=== PATIENT | male | born 1995 | race Caucasian/White ===

== ENCOUNTER 2023-04-21 09:34 | Emergency (ER) | payer OTHER, SELFPAY ==
[2023-04-21 09:40] VITALS: BP 143/99; PULSE 98; RESP 16; TEMP 36.7; O2SAT 100; BMI 19.4
--- NOTE | 2023-04-21 09:50 | CT_ITS ---
The [address] [address] Patient Name: TAMERA CARRILLO MRN: [id number] date: 1995 Sex: M Assigned Patient Location: ER Current Patient Location: ER Accession/Order Number: [id number] Exam Date: 04/21/2023 09:50 Report Date: 04/21/2023 10:10 At the request of: JOHN NAVARRETE Procedure: CT head/brain wo con EXAM: CT head/brain wo con HISTORY: Head injury COMPARISON: None. FINDINGS: No acute intracranial hemorrhage. No acute loss of meléndez/white differentiation. The ventricles and sulci are normal in appearance. The osseous structures are unremarkable. No soft tissue abnormality identified. The paranasal sinuses and mastoid air cells are clear. CT/CT head/brain wo con IMPRESSION: 1. No acute intracranial abnormality. Electronically authenticated by: CARISA VALENTIN Date: 04/21/2023 10:10
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
[2023-04-21 10:37] VITALS: BP 127/91; PULSE 88; RESP 14; O2SAT 96
== END 2023-04-21 10:39 | disposition home or self-care (01) ==
PROVIDERS: Emergency Provider Emergency Medicine; PCP Family Medicine
DX: T14.8XXA Other injury of unspecified body region, initial encounter (principal); W22.8XXA Striking against or struck by other objects, initial encounter
CPT/HCPCS: 70450; 99284

== ENCOUNTER 2023-11-07 13:12 | Emergency (ER) | payer OTHER, SELFPAY ==
[2023-11-07 13:15] VITALS: BP 103/57; PULSE 64; TEMP 36.5; BMI 19.4
--- NOTE | 2023-11-07 13:25 | ED_ITS ---
HPI - Wound/Laceration General Chief Complaint: Wound/Laceration Stated Complaint: LACERATION Time Seen by Provider: 11/07/23 13:12 Source: patient Mode of arrival: walk-in Limitations: no limitations History of Present Illness HPI narrative: 27-year-old male [id number] was working on his car when he struck his hand on his rearview mirror. Patient has a 1 cm laceration dorsal aspect of the hand at the base of the ring finger overlying the fourth MCP joint. Just lateral to the extensor tendon. Patient has localized pain, range of motion intact, denies any numbness or tingling. Notes pain with motion. Small abrasion at the base of the middle finger. Patient states the laceration was caused by broken glass. His tetanus is up-to-date and he typically works in a metal shop. Extremity Location: Right: hand Place: Reports home Patient tetanus UTD: Yes Associated symptoms: Reports none Treatments prior to arrival: Reports cold therapy Related Data Home Medications ?Medication ?Instructions ?Recorded ?Confirmed No Known Home Medications 04/21/23 04/21/23 Allergies Allergy/AdvReac Type Severity Reaction Status Date / Time No Known Drug Allergies Allergy Verified 04/21/23 09:39 Review of Systems ROS Constitutional Denies: fever, chills or change in weight Eyes Denies: change in vision, blurry vision or increased production of tears Ears, nose, mouth, and throat Denies: throat pain or neck pain Cardiovascular Denies: chest pain or palpitations Respiratory Denies: shortness of breath or cough Gastrointestinal Denies: abdominal pain or nausea Musculoskeletal Denies: back pain or neck pain Integumentary/Breast Denies: rash Neurological Denies: headache Psychiatric Denies: anxiety [facility] Social History Smoking status: Never smoker Exam Narrative Exam Narrative: Nurse's notes and vital signs reviewed. Patient is not hypoxic. General: The patient appears well and in no apparent distress. Patient is resting comfortably on cart. Skin: Warm, dry, no pallor noted. 1 cm laceration superficial dorsal aspect fourth ray just proximal to the MCP joint. No active bleeding. Extensor tendon function intact Head: Normocephalic, atraumatic Eye: Normal conjunctiva Respiratory: Patient is in no distress Musculoskeletal: The Right hand wrist shows no obvious deformity. laceration as noted above, small abrasion base of middle finger. There was no swelling noted. The patient had full ROM despite pain The patient had tenderness noted to laceration. The patient had no tenderness in the anatomical snuff box. The patient had no pain with axial loading of the thumb. Pulses are intact at brachial and radial 2+. There was no deficit at the elbow or shoulder. The patient has normal capillary refill to all distal digits. The patient has no evidence of cyanosis or mottling. The patient is able to flex and extend all digits without difficulty. Neurological: A&O x4, normal sensory, normal motor Psychiatric: Cooperative Constitutional Vital Signs, click to edit/add: Last Vital Signs Temp 97.7 F 11/07/23 13:15 Pulse 64 11/07/23 13:15 Resp 16 11/07/23 13:15 BP 103/57 11/07/23 13:15 Course Vital Signs Vital signs: Vital Signs Temperature 97.7 F 11/07/23 13:15 Pulse Rate 64 11/07/23 13:15 Respiratory Rate 16 11/07/23 13:15 Blood Pressure 103/57 11/07/23 13:15 Temperature 97.7 F 11/07/23 13:15 Pulse Rate 64 11/07/23 13:15 Respiratory Rate 16 11/07/23 13:15 Blood Pressure 103/57 11/07/23 13:15 MDM - Wound/Laceration MDM Narrative Medical decision making narrative: Patient doing well, tetanus up-to-date. Bleeding controlled with direct pressure. No evidence of arterial bleeding. Discussed mechanism of injury, patient states he did not strike the mirror with any force and did not even realize he cut his hand until he looked at it. We mutually discussed the utili ty of x-ray, patient declines the need not concerned for fracture. Foreign body seems less likely given exploration of the wound during repair easily visible superficial and without laceration. patient denies pain, may take Tylenol as needed we discussed wound care and need for suture removal in 10 days. The patient is to followup with primary care physician in next 10 days or to return to the emergency department should any of the signs or symptoms worsen or new symptoms develop. Patient had questions answered. The patient agrees with the following Diagnosis and Treatment plan and the patient will be discharged home. Discharge Plan Discharge Stand Alone Forms: Work/School Release, Portal Instructions Chief Complaint: Wound/Laceration Clinical Impression: Laceration of hand, right Patient Disposition: Home, Self-Care Time of Disposition Decision: 13:49 Condition: Good Mode of Transportation: Private Vehicle Prescriptions / Home Meds: No Action No Known Home Medications Print Language: Bhutanese Instructions: Laceration (ED) Additional Instructions: Suture removal in [address] Crook's office or return to ER. May shower, Keep clean and dry after. No submerging wound. Referrals: JAYLA CROOK [Primary Care Provider] - 11/17/23 Procedures ED Laceration Laceration Laceration 1: Additional comments: Laceration repair: Done under sterile conditions. The use of Betadine was used to prep and clean the area. Local injection with lidocaine 1% was used, approximately 2 cc. The wound was irrigated copiously with normal saline. The wound was explored there was no evidence of foreign material. Laceration was superficial with no capsule or tendon involvement. Fascia covering extensor and capsule intact. The laceration was approximated with 5-0 nylon. 3 simple interrupted sutures were placed. Patient tolerated the procedure well. The patient was neurovascularly intact post. the patient had bacitracin applied to the laceration and a dry sterile dressing was place. The patient will need to follow-up in the next 0 days for removal.
--- OUTSIDE RECORDS SUMMARY | 2023-11-07 13:29 | XMS_ITS | CCD ---
Author Organization [facility] Inform ion Partnership [facility] Care Team Providers Care Laboratory Aide Name Role Phone Raul Yee Primary Care Provider [phone] MINESH STERN Attending Unavailab RAUL Posey Primary Care Unavailable ISABELA NORIEGA Attending Unavailable ISABELA NORIEGA Admitting Unavailable ISABELA NORIEGA Attending Unavailable ISABELA NORIEGA Admitting Unavailable ISABELA NORIEGA Consulting Unavailable Ellen Jaquez Unavailable Medications Current Medications Medication Drug Class(es) Dates Sig (Normalized) Sig (Original) amoxicillin 500 mg oral capsule (1 source) Penicillin-class Antibacterial Start: 04-19-2022 take 1 capsule by mouth every twelve hours Amoxicillin 500 MG 1 capsule Orally Twice a day for 10 days Apr, Active Problems Problem Classification Problem Date Documented Da te Episodic/Chronic Other ear and sense organ disorders (1 source) Unspecified otitis externa, left ear; Translations: [UNS OTITIS EXTERNA LEFT EAR] Onset: 04-06-2020 Chronic Other skin disorders (4 sources) Generalized hyperhidrosis; Translations: [GENERALIZED HYPERHIDROSIS] Onset: 04-01-2020 Episodic Other upper respiratory infections (2 sources) Acute pharyngitis, unspecified; Translations: [Streptococcal pharyngitis] Episodic Viral infection (2 sources) Viral disease; Translations: [Viral infection] Onset: 01-06-2020 01-06-2020 Episodic Results Test Name Value Interpretation Reference Range Facil ity Quick Strepon 04-19-2022 S. pyogenes Org specific cx Ql (Throat) Negative [facility] Other Quick Strep [facility] Other CBC AUTO DIFFon 04-01-2020 Basophils (Bld) [#/Vol] 0.1 103/ul Normal 0.0-0.1 [facility] Comment on above: Performed By: #### C BC #### [facility] [address], [place] [address] Joseph Marry Basophils/100 WBC (Bld) 1.0 % Normal 0.2-2.0 [facility] Comment on above: Performed By: #### C BC #### [facility] [address], [place] [address] Joseph Marry Eosinophils (Bld) [#/Vol] 0.2 103/ul Normal 0.0-0.7 [facility] Comment on above: Performed By: #### C BC #### [facility] [address], [place] [address] Joseph Marry Eosinophils/100 WBC (Bld) 1.8 % Normal 0.9-7.0 [facility] Comment on above: Performed By: #### C BC #### [facility] [address], [place] [address] Joseph Marry Erythrocyte distribution width (RBC) [Ratio] 12.2 % Normal 11.0-15.0 [facility] Comment on above: Performed By: #### C BC #### [facility] [address], [place] [address] Joseph Marry Hematocrit (Bld) [Volume fraction] 53.6 % Normal 42.0-54.0 [facility] Comment on above: Performed By: #### C BC #### [facility] [address], [place] [address] Joseph Marry Hemoglobin (Bld) [Mass/Vol] 18.7 g/dL Critically high 14.0-18.0 [facility] Comment on above: Performed By: #### C BC #### [facility] [address], [place] [address] Joseph Marry IG # 0.07 10e3/ul Critically high 0.00-0.03 [facility] Comment on above: Performed By: #### C BC #### [facility] [address], [place] [address] Joseph Marry IG % 0.7 % Critically high 0.0-0.5 [facility] Comment on above: Performed By: #### C BC #### [facility] [address], [place] [address] Joseph Marry Lymphocytes (Bld) [#/Vol] 2.3 103/ul Normal 1.2-3.8 [facility] Comment on above: Performed By: #### C BC #### [facility] [address], [place] [address] Joseph Marry Lymphocytes/100 WBC (Bld) 23.0 % Normal 20.5-60.0 [facility] Comment on above: Performed By: #### C BC #### [facility] [address], [place] [address] Joseph Marry MANUAL DIFF REQ NO Normal [facility] Comment on above: Performed By: #### C BC #### [facility] [address] [place] [address] Joseph Marry MCH (RBC) [Entitic mass] 31.4 pg Normal 25.9-34.0 [facility] Comment on above: Performed By: #### C BC #### [facility] [address] [place] [address] Joseph Marry MCHC (RBC) [Mass/Vol] 34.9 g/dL Normal 29.9-35.2 [facility] Comment on above: Performed By: #### C BC #### [facility] [address] [place] [address] Joseph Marry MCV (RBC) [Entitic vol] 89.9 fL Normal 80.0-94.0 [facility] Comment on above: Performed By: #### C BC #### [facility] [address] [place] [address] Joseph Marry Monocytes (Bld) [#/Vol] 0.9 103/ul Critically high 0.3-0.8 [facility] Comment on above: Performed By: #### C BC #### [facility] [address], [place] [address] Joseph Marry Monocytes/100 WBC (Bld) 8.5 % Normal 1.7-12.0 [facility] Comment on above: Performed By: #### C BC #### [facility] [address], [place] [address] Joseph Marry Neutrophils (Bld) [#/Vol] 6.6 103/ul Critically high 1.4-6.5 [facility] Comment on above: Performed By: #### C BC #### [facility] [address], [place] [address] Joseph Marry Neutrophils/100 WBC (Bld) 65.0 % Normal 43.0-75.0 [facility] Comment on above: Performed By: #### C BC #### [facility] [address], [place] [address] Joseph Marry Platelet mean volume (Bld) [Entitic vol] 11.1 fL Normal 9.5-13.5 [facility] Comment on above: Performed By: #### C BC #### [facility] [address], [place] [address] Joseph Marry Platelets (Bld) [#/Vol] 212 103/ul Normal 150-450 [facility] Comment on above: Performed By: #### C BC #### [facility] [address], [place] [address] Joseph Marry RBC (Bld) [#/Vol] 5.96 106/ul Normal 4.70-6.10 [facility] Comment on above: Performed By: #### C BC #### [facility] [address], [place] [address] Joseph Marry WBC (Bld) [#/Vol] 10.1 103/ul Normal 4.0-11.0 [facility] Comment on above: Performed By: #### C BC #### [facility] [address], [place] [address] Joseph Marry FREE THYROXINE INDEX T7on FTI 2.86 Normal [facility] Comment on above: Performed By: #### T SH, CMP, T7 #### [facility] [address], [place] [address] Joseph Marry T3U 34.0 % Normal 23.5-40.5 [facility] Comment on above: Performed By: #### T AVINASH CMP, T7 #### [facility] [address] [place] [id number] Joseph Marry T4 [Mass/Vol] 8.40 ug/dL Normal 5.53-11.00 [facility] Comment on above: Performed By: #### T AVINASH CMP, T7 #### [facility] [address] [place], [place] [address] Joseph Tuttle PROF 14(COMP METB)on 021 Albumin [Mass/Vol] 4.8 g/dL Normal 3.5-5.0 [facility] Comment on above: Performed By: #### T AVINASH CMP, T7 #### [facility] [address] [place] [address] Josephzhanna Tuttle Albumin/Globulin [Mass ratio] 1.5 {ratio} Normal [facility] Comment on above: Performed By: #### T AVINASH CMP, T7 #### [facility] [address] [place] [address] Joseph Marry ALP [Catalytic activity/Vol] 73 U/L Normal 38-126 [facility] Comment on above: Performed By: #### T AVINASH CMP, T7 #### [facility] [address] [place] [address] Joseph Marry ALT [Catalytic activity/Vol] 24 U/L Normal 21-72 [facility] Comment on above: Performed By: #### T AVINASH CMP, T7 #### [facility] [address] [place], [place] [address] Joseph Marry Anion gap [Moles/Vol] 14.4 mmol/L Normal [facility] Comment on above: Performed By: #### T AVINASH CMP, T7 #### [facility] [address] [place] [address] Joseph Marry AST [Catalytic activity/Vol] 29 U/L Normal 17-59 [facility] Comment on above: Performed By: #### T AVINASH CMP, T7 #### [facility] [address] [place], [place] [address] Joseph Marry Bilirubin Ql (U) 1.5 mg/dL Critically high 0.2-1.3 [facility] Comment on above: Performed By: #### T MONO DA SILVA, T7 #### [facility] [address] [place] [address] Joseph Marry Calcium [Mass/Vol] 9.7 mg/dL Normal 8.4-10.2 [facility] Comment on above: Performed By: #### T AVINASH CMP, T7 #### [facility] [address] [place] [address] Joseph Marry Chloride [Moles/Vol] 100 mmol/L Normal 98-107 [facility] Comment on above: Performed By: #### T MONO DA SILVA, T7 #### [facility] [address] [place] [address] Joseph Marry CO2 [Moles/Vol] 29.5 mmol/L Normal 22.0-30.0 [facility] Comment on above: Performed By: #### T AVINASH CMP, T7 #### [facility] [address] [place] [address] Joseph Marry Creatinine [Mass/Vol] 0.99 mg/dL Normal 0.66-1.25 [facility] Comment on above: Performed By: #### T MONO DA SILVA, T7 #### [facility] [address] [place] [address] Joseph Marry EGFR-AF ANDORRAN >60 Normal >=60 [facility] Comment on above: Performed By: #### T AVINASH CMP, T7 #### [facility] [address] [place] [address] Joseph Marry EGFR-NON AF ANDORRAN >60 Normal >=60 [facility] Comment on above: Performed By: #### T AVINASH CMP, T7 #### [facility] [address] [place] [address] Joseph Marry Globulin (S) [Mass/Vol] 3.3 g/dL Normal [facility] Comment on above: Performed By: #### T AVINASH CMP, T7 #### [facility] [address] [place], [place] [address] Joseph Marry Glucose [Mass/Vol] 86 mg/dL Normal 74-106 [facility] Comment on above: Performed By: #### T MONO DA SILVA, T7 #### [facility] [address] [place], [place] [address] Joseph Marry Potassium [Moles/Vol] 3.9 mmol/L Normal 3.4-5.0 [facility] Comment on above: Performed By: #### T AVINASH CMP, T7 #### [facility] [address] [place], [place] [address] Joseph Marry Protein [Mass/Vol] 8.1 g/dL Normal 6.1-8.2 [facility] Comment on above: Performed By: #### T MONO DA SILVA, T7 #### [facility] [address] [place], [place] [address] Joseph Marry Sodium [Moles/Vol] 140 mmol/L Normal 137-145 [facility] Comment on above: Performed By: #### T AVINASH CMP, T7 #### [facility] [address] [place] [address] Joseph Marry Urea nitrogen [Mass/Vol] 16.0 mg/dL Normal 9.0-20.0 [facility] Comment on above: Performed By: #### T MONO DA SILVA, T7 #### [facility] [address] [place], [place] [address] Joseph Marry Urea nitrogen/Creatinin e [Mass ratio] 16.2 mg/mg Normal [facility] Comment on above: Performed By: #### T AVINASH CMP, T7 #### [facility] [address] [place], [place] [address] Joseph Marry TSHon 04-01-2020 TSH Qn SEE BELOW Normal [facility] Comment on above: Result Comment: <0.3 4 UIU/ml HYPERTHYROID 0.34-5.60 UIU/ml EUTHYROID >5.60 UIU/ml HYPOTHYROID Performed By: #### T AVINASH CMP, T7 #### [facility] [address] [place] [address] Joseph Marry TSH Qn 0.770 uIU/mL Normal 0.470-4.680 [facility] Comment on above: Performed By: #### T , [facility], T7 #### [facility] [address], [place] [address] Joseph Tuttle COVID-19on 01-06-2020 SARS-CoV-2, Rapid Not Detected Not Detected [place], [place] Comment on above: Rapid NAAT: The specimen is NEGATIVE for SARS-CoV-2, the novel coronavirus associated with COVID-19. The ID NOW COVID-19 assay is designed to detect the virus that causes COVID-19 in patients with signs and symptoms of infection who are suspected of COVID-19. An individual without symptoms of COVID-19 and who is not shedding SARS-CoV-2 virus would expect to have a negative (not detected) result in this assay. Negative results should be treated as presumptive and, if inconsistent with clinical signs and symptoms or necessary for patient management, should be tested with an alternative molecular assay. Negative results do not preclude SARS-CoV-2 infection and should not be used as the sole basis for patient management decisions. Fact sheet for Healthcare Providers: https://www.fda.gov/media/048909/download Fact sheet for Patients: https://www.fda.gov/media/010078/download Methodology: Isothermal Nucleic Acid Amplification Source .NASOPHARYNGEAL SWAB [place] Otheron 01-06-2020 SARS-CoV-2 [place] [id number] 01-06-2020 SARS-CoV-2 [facility] Comment on above: Performed By: #### C OVID #### [facility] [address] [place] [address] Log Roller: Wayne [place] MD SARS-CoV-2 [facility] Comment on above: Performed By: #### C OVID #### [facility] [address] [place] [address] Log Roller: Wayne [place] MD SARS-CoV-2,Rapid Not Detected Normal NOTDET [facility] Comment on above: Result Comment: Rapid NAAT: The specimen is NEGATIVE for SARS-CoV-2, the novel coronavirus associated with COVID-19. The ID NOW COVID-19 assay is designed to detect the virus that causes COVID-19 in patients with signs and symptoms of infection who are suspected of COVID-19. An individual without symptoms of COVID-19 and who is not shedding SARS-CoV-2 virus would expect to have a negative (not detected) result in this assay. Negative results should be treated as presumptive and, if inconsistent with clinical signs and symptoms or necessary for patient management, should be tested with an alternative molecular assay. Negative results do not preclude SARS-CoV-2 infection and should not be used as the sole basis for patient management decisions. Fact sheet for Healthcare Providers: https://www.fda.gov/media/979824/download Fact sheet for Patients: https://www.fda.gov/media/766158/download Methodology: Isothermal Nucleic Acid Amplification Performed By: #### C OVID #### [address] [place] [address] Log Roller: Wayne [place] MD SARS-CoV-2 Source .NASOPHARYNGEAL SWAB Normal [facility] Comment on above: Performed By: #### C OVID #### [facility] [address] [place] [address] Log Roller: Wayne [place] MD Vital Signs Date Time Vital Sign Value Performing Clinician Facility 04-19-2022 18:10-0500 Body height 165.1 cm Ellen Jaquez Other [employer] [facility] [employer] Other 04-19-2022 18:10-0500 Body mass index (BMI) [Ratio] 19.97 kg/m2 Ellen Jaquez Other [employer] [facility] [employer] Other 04-19-2022 18:10-0500 Body temperature 97.5 [degF] Ellen Jaquez Other [facility] Other 04-19-2022 18:10-0500 Body weight 54.43 kg Ellen Jaquez Other [facility] Other 04-19-2022 18:10-0500 Respiratory rate 18 /min Ellen Jaquez Other [facility] Other 04-19-2022 18:10-0500 SaO2% (BldA) [Mass fraction] 99 % Ellen Jaquez Other [facility] Other 01-06-2020 08:56-0400 BMI (Body Mass Index) 18.56 kg/m2 [facility] [place] 01-06-2020 08:56-0400 Body Temperature 98.01 [degF] [facility]ines[facility] Jonespatrick [employer] [facility] [place] 01-06-2020 08:56-0400 Body weight 52.16 kg Minesh [employer] [facility], [place] 01-06-2020 08:56-0400 BP Diastolic 77 mm[Hg] Minesh [employer] [facility], [place] 01-06-2020 08:56-0400 BP Systolic 137 mm[Hg] Minesh [employer] [facility] 01-06-2020 08:56-0400 Height 167.6 cm Minesh [employer] [facility], [place] 01-06-2020 08:56-0400 Pulse (Heart Rate) 88 /min Minesh Vogel [facility], [place] 01-06-2020 08:56-0400 Pulse Oximetry 99 % Minesh [employer] [facility], [place] 01-06-2020 08:56-0400 Respiratory Rate 12 /min [facility] [place] Encounters Encounter Date Encounter Type Care Provider Facility Start: 04-19-2022 End: 04-19-2022 ambulatory Ellen Jaquez Other [facility] Other Start: 04-19-2022 Office outpatient ne w 30 minutes Ellen Jaquez [facility] Start: 04-10-2020 Patient encounter procedure ISABELA NORIEGA Facility: Start: 04-01-2020 End: 04-02-2020 Patient encounter procedure ISABELA NORIEGA Facility:[facility] Start: 01-06-2020 End: 01-06-2020 Emergency department patient visit [facility] Start: 01-06-2020 End: 01-06-2020 Emergency department patient visit [facility] ED Comment on above: Viral infection (Kae kayla Dx) Procedures Date Procedure Procedure Detail Performing Clinician Start: 01-06-2020 COVID-19 MINESH LOYD Start: 01-06-2020 COVID-19 Minesh Ventura Stern Plan of Treatment Date Care Activity Detail Author Start: 11-09-2019 Influenza vaccination Flu vaccine (# 1) [place] Payers Date Payer Category Payer Unknown [id number] 1995 Unknown [id number] 1995 Unknown [id number] 1959 Self-pay 1959 Unknown [id number] Unknown [id number]. [id number] Social History Date Type Detail Facility Start: 01-06-2020 [facility] sm[place] History of tobacco use Cigarette Smoker M [place], [place] Start: 01-06-2020 Cigarettes smoked current (pack per day) - Reported [place] Start: 01-06-2020 Tobacco use and exposure Never used [place] Start: 01-06-2020 Alcohol intake Ex-drinker (finding) [place] Sex Assigned At Not on file [place] Sex Assigned At Sex Assigned At Bir th [facility] Other Evaluation note 04-19-2022 Note Date & Type Note Facility 04-19-2022 Evaluation note Encounter Date Diagnosis Assessment Notes Apr, Sore throat (ICD-10 - J02.9) Apr, Strep pharyngitis (ICD-10 - J02.0) Advised patient that rapid strep test was negative but will treat for strep today based on physical exam. Will treat with antibiotic, reviewed allergies and recent antibiotic use. Instructed parent to give antibiotic as prescribed, with food, complete entire course even if feeling better. Supportive care as directed. Push fluids and rest, Tylenol or Motrin as needed for fever or discomfort. Patient's symptoms should improve in the next 48 hours, eval by PCP or UC if symptoms have not improved with treatment. Discussed in depth warning symptoms that require immediate eval. Change out tooth brush after being on antibiotic for 2-3 days. Patient verbalizes understanding and is agreeable to treatment plan [facility] Other Discharge Instructions * Attachments The following attachments cannot be sent through Care Everywhere. * Viral Infections (Upper Sor[place]) documented in this encounter Assessments Diagnosis Viral infection Unspecified viral infection, in conditions classified elsewhere and of unspecified site Summary Purpose Family History No Family History Records FoundNo Family History Records Found Advance Directives No Advanced Directives Records FoundNo Advanced Directives Records Found Additional Source Comments Reason for Visit (unrecogniz ed section and content) SORE THROAT, CONGESTION Reason Comments Covid Testing Sent home from work. Onset of cough yesterday. (unrecognized sect ion and content) No Status Records FoundNo Status Records Found INFORMATION SOURCE (unrecogn ized section and content) DATE CREATED AUTHOR 01/06/2020 [facility] DATE CREATED AUTHOR AUTHOR'S DEVON ATION 04/16/2020 [facility] FOR RECORDS PERTAINING TO PATIENTS WHO ARE OR HAVE BEEN ENROLLED IN A CHEMICAL DEPENDENCY/SUBSTANCEABUSE PROGRAM, SOME INFORMATION MAY BE OMITTED. This clinical summary was aggregated from multiple sources. Caution should be exercised in using it in the provision of clinical care. This summary normalizes information from multiple sources, and as a consequence, information in this document may materially change the coding, format and clinical context of patient data. In addition, data may be omitted in some cases. CLINICAL DECISIONS SHOULD BE BASED ON THE PRIMARY CLINICAL RECORDS. [facility] [employer] [facility]. provides no warranty or guarantee of the accuracy or completeness of information in this document.
[2023-11-07] MEDS: BACITRACIN 0.9 GM PACKET 1 PACKET TOPICAL (13:33)
[2023-11-07] MEDS: LIDOCAINE HCL 1% 100 MG/10 ML MDV INJ (13:33)
== END 2023-11-07 14:01 | disposition home or self-care (01) ==
PROVIDERS: Emergency Provider Emergency Medicine; PCP Family Medicine
DX: S61.411A Laceration without foreign body of right hand, initial encounter (principal); W22.8XXA Striking against or struck by other objects, initial encounter
CPT/HCPCS: 12001; 99282

== ENCOUNTER 2024-04-06 12:36 | Emergency (ER) | payer SELFPAY ==
[2024-04-06 12:44] VITALS: BP 121/73; PULSE 99; TEMP 36.8; O2SAT 99; BMI 19.4
--- NOTE | 2024-04-06 12:48 | XR_ITS ---
The [address] [address] Patient Name: TAMERA CARRILLO MRN: [id number] date: 1995 Sex: M Assigned Patient Location: ER Current Patient Location: ED.MAIN Accession/Order Number: [id number] Exam Date: 04/06/2024 12:57 Report Date: 04/06/2024 13:08 At the request of: JOHN NAVARRETE Procedure: XR chest 1V EXAMINATION: XR chest 1V HISTORY: harshing coughing for a week. COMPARISON: No relevant comparison available. TECHNIQUE: Frontal FINDINGS: LUNGS: No significant pulmonary parenchymal abnormalities. VASCULATURE: No increased pulmonary vasculature. PLEURA: No pneumothorax, effusion, or pleural thickening. CARDIAC: No cardiomegaly or cardiac silhouette abnormality. MEDIASTINUM: No visible mass or adenopathy. BONES: No fracture or visible bone lesion. OTHER: Negative. XR/XR chest 1V IMPRESSION: No acute cardiopulmonary process Electronically authenticated by: SAIGE MATTHEWS Date: 04/06/2024 13:08
--- OUTSIDE RECORDS SUMMARY | 2024-04-06 12:58 | XMS_ITS | CCD ---
Author Organization [facility] Inform ion Partnership [facility] Care Team Providers Care [employer] Name Role Phone Raul Yee Primary Care Provider [phone] MINESH JAVIER Attending Unavailab RAUL Warren Primary Care Unavailable ISABELA NORIEGA Attending Unavailable ISABELA NORIEGA Admitting Unavailable ISABELA NORIEGA Attending Unavailable ISABELA NORIEGA Admitting Unavailable ISABELA NORIEGA Consulting Unavailable Ellen Jaquez Unavailable Kirill Rachel Attending Unavailab Kirill Macias Admitting Unavailab Raul Warren Primary Care Unavailable Medications Current Medications Medication Drug Class(es) [...] pyogenes Org specific cx Ql (Throat) Negative [email or web address] Other Quick Strep [email or web address] Other CBC AUTO DIFFon 04-01-2020 Basophils (Bld) [#/Vol] 0.1 103/ul Normal 0.0-0.1 [facility] Comment on above: Performed By: #### C BC #### [facility] [address] [place], [place] [id number] Joseph Marry Basophils/100 WBC (Bld) 1.0 % Normal 0.2-2.0 [facility] Comment on above: Performed By: #### C BC #### [facility] [address] [place], [place] [address] Joseph Marry Eosinophils (Bld) [#/Vol] 0.2 103/ul Normal 0.0-0.7 [facility] Comment on above: Performed By: #### C BC #### [facility] [address] [place], [place] [address] Joseph Marry Eosinophils/100 WBC (Bld) 1.8 % Normal 0.9-7.0 [facility] Comment on above: Performed By: #### C BC #### [facility] [address] [place], [place] [address] Joseph Marry Erythrocyte distribution width (RBC) [Ratio] 12.2 % Normal 11.0-15.0 [facility] Comment on above: Performed By: #### C BC #### [facility] [address] [place], [place] [address] Joseph Marry Hematocrit (Bld) [Volume fraction] 53.6 % Normal 42.0-54.0 [facility] Comment on above: Performed By: #### C BC #### [facility] [address] [place], [place] [address] Joseph Marry Hemoglobin (Bld) [Mass/Vol] 18.7 g/dL Critically high 14.0-18.0 [facility] Comment on above: Performed By: #### C BC #### [facility] [address] [place], [place] [address] Joseph Marry IG # 0.07 10e3/ul Critically high 0.00-0.03 [facility] Comment on above: Performed By: #### C BC #### [facility] [address] [id number] Joseph Marry IG % 0.7 % Critically high 0.0-0.5 [facility] Comment on above: Performed By: #### C BC #### [facility] [address] [id number] Joseph Marry Lymphocytes (Bld) [#/Vol] 2.3 103/ul Normal 1.2-3.8 [facility] Comment on above: Performed By: #### C BC #### [facility] [address] [place], [place] [address] Joseph Marry Lymphocytes/100 WBC (Bld) 23.0 % Normal 20.5-60.0 [facility] Comment on above: Performed By: #### C BC #### [facility] [address] [place], [place] [address] Joseph Marry MANUAL DIFF REQ NO Normal [facility] Comment on above: Performed By: #### C BC #### [facility] [address] [place], [place] [address] Joseph Marry MCH (RBC) [Entitic mass] 31.4 pg Normal 25.9-34.0 [facility] Comment on above: Performed By: #### C BC #### [facility] [address] [place], [place] [address] Josephzhanna Thapaen MCHC (RBC) [Mass/Vol] 34.9 g/dL Normal 29.9-35.2 [facility] Comment on above: Performed By: #### C BC #### [facility] [address] [place], [place] [address] Joseph Marry MCV (RBC) [Entitic vol] 89.9 fL Normal 80.0-94.0 [facility] Comment on above: Performed By: #### C BC #### [facility] [address] [place], [place] [address] Joseph Marry Monocytes (Bld) [#/Vol] 0.9 103/ul Critically high 0.3-0.8 [facility] Comment on above: Performed By: #### C BC #### [facility] [address] [place], [place] [address] Joseph Marry Monocytes/100 WBC (Bld) 8.5 % Normal 1.7-12.0 [facility] Comment on above: Performed By: #### C BC #### [facility] [address] [place], [place] [address] Joseph Marry Neutrophils (Bld) [#/Vol] 6.6 103/ul Critically high 1.4-6.5 [facility] Comment on above: Performed By: #### C BC #### [facility] [address] [place], [place] [address] Joseph Marry Neutrophils/100 WBC (Bld) 65.0 % Normal 43.0-75.0 [facility] Comment on above: Performed By: #### C BC #### [facility] [address] [place], [place] [address] Josephzhanna Thapaen Platelet mean volume (Bld) [Entitic vol] 11.1 fL Normal 9.5-13.5 [facility] Comment on above: Performed By: #### C BC #### [facility] [address] [place], [place] [address] Josephzhanna Tuttle Platelets (Bld) [#/Vol] 212 103/ul Normal 150-450 [facility] Comment on above: Performed By: #### C BC #### [facility] [address] [place], [place] [address] Josephzhanna Thapaen RBC (Bld) [#/Vol] 5.96 106/ul Normal 4.70-6.10 [facility] Comment on above: Performed By: #### C BC #### [facility] [address] [place] [address] Joseph Marry WBC (Bld) [#/Vol] 10.1 103/ul Normal 4.0-11.0 [facility] Comment on above: Performed By: #### C BC #### [facility] [address] [place] [address] Josephzhanna Thapaen FREE THYROXINE INDEX T7on FTI 2.86 Normal [facility] Comment on above: Performed By: #### T AVINASH CMP, T7 #### [facility] [address] [place], [place] [address] Josephzhanna Thapaen T3U 34.0 % Normal 23.5-40.5 [facility] Comment on above: Performed By: #### T AVINASH CMP, T7 #### [facility] [address] [place], [place] [address] Josephzhanna Tuttle T4 [Mass/Vol] 8.40 ug/dL Normal 5.53-11.[address] [facility] Comment on above: Performed By: #### T AVINASH CMP, T7 #### [facility] [address] [place], [place] [address] Joseph Tuttle PROF 14(COMP METB)on 021 Albumin [Mass/Vol] 4.8 g/dL Normal 3.5-5.0 [facility] Comment on above: Performed By: #### T AVINASH CMP, T7 #### [facility] [address] [place], [place] [address] Josephzhanna Tuttle Albumin/Globulin [Mass ratio] 1.5 {ratio} Normal [facility] Comment on above: Performed By: #### T AVINASH CMP, T7 #### [facility] [address] [place] [address] Joseph Marry ALP [Catalytic activity/Vol] 73 U/L Normal 38-126 [facility] Comment on above: Performed By: #### T AVINASH CMP, T7 #### [facility] [address] [place] [address] Joseph Marry ALT [Catalytic activity/Vol] 24 U/L Normal 21-72 [facility] Comment on above: Performed By: #### T AVINASH CMP, T7 #### [facility] [address] [place], [place] [address] Joseph Marry Anion gap [Moles/Vol] 14.4 mmol/L Normal [facility] Comment on above: Performed By: #### T AVINASH CMP, T7 #### [facility] [address] [place] [address] Joseph Marry AST [Catalytic activity/Vol] 29 U/L Normal 17-59 [facility] Comment on above: Performed By: #### T AVINASH CMP, T7 #### [facility] [address] [address] Joseph Marry Bilirubin Ql (U) 1.5 mg/dL Critically high 0.2-1.3 [facility] Comment on above: Performed By: #### T AVINASH CMP, T7 #### [facility] [address] [address] Joseph Marry Calcium [Mass/Vol] 9.7 mg/dL Normal 8.4-10.2 [facility] Comment on above: Performed By: #### T AVINASH CMP, T7 #### [facility] [address] [place] [address] Joseph Marry Chloride [Moles/Vol] 100 mmol/L Normal 98-107 [facility] Comment on above: Performed By: #### T AVINASH CMP, T7 #### [facility] [address] [place] [address] Joseph Marry CO2 [Moles/Vol] 29.5 mmol/L Normal 22.0-30.0 [facility] Comment on above: Performed By: #### T AVINASH CMP, T7 #### [facility] [address] [place] [address] Joseph Marry Creatinine [Mass/Vol] 0.99 mg/dL Normal 0.66-1.25 [facility] Comment on above: Performed By: #### T AVINASH CMP, T7 #### [facility] [address] [address] Joseph Marry EGFR-AF ANDORRAN >60 Normal >=60 [facility] Comment on above: Performed By: #### T AVINASH CMP, T7 #### [facility] [address] [place] [address] Joseph Marry EGFR-NON AF ANDORRAN >60 Normal >=60 [facility] Comment on above: Performed By: #### T AVINASH CMP, T7 #### [facility] [address] [phone] Joseph Marry Globulin (S) [Mass/Vol] 3.3 g/dL Normal [facility] Comment on above: Performed By: #### T MONO DA SILVA, T7 #### [facility] [address] [phone] Joseph Marry Glucose [Mass/Vol] 86 mg/dL Normal 74-106 [facility] Comment on above: Performed By: #### T AVINASH CMP, T7 #### [facility] [address] [phone] Joseph Marry Potassium [Moles/Vol] 3.9 mmol/L Normal 3.4-5.0 [facility] Comment on above: Performed By: #### T MONO DA SILVA, T7 #### [facility] [address] [place] [address] Joseph Marry Protein [Mass/Vol] 8.1 g/dL Normal 6.1-8.2 [facility] Comment on above: Performed By: #### T MONO DA SILVA, T7 #### [facility] [address] [place] [address] Joseph Marry Sodium [Moles/Vol] 140 mmol/L Normal 137-145 [facility] Comment on above: Performed By: #### T AVINASH CMP, T7 #### [facility] [address] [place], [place] [address] Joseph Marry Urea nitrogen [Mass/Vol] 16.0 mg/dL Normal 9.0-20.0 [facility] Comment on above: Performed By: #### T AVINASH CMP, T7 #### [facility] [address] [place], [place] [address] Joseph Marry Urea nitrogen/Creatinin e [Mass ratio] 16.2 mg/mg Normal [facility] Comment on above: Performed By: #### T AVINASH CMP, T7 #### [facility] [address] [place] [address] Joseph Marry TSHon 04-01-2020 TSH Qn SEE BELOW Normal [facility] Comment on above: Result Comment: <0.3 4 UIU/ml HYPERTHYROID 0.34-5.60 UIU/ml EUTHYROID >5.60 UIU/ml HYPOTHYROID Performed By: #### T SH, CMP, T7 #### [facility] [address] [place], [place] [address] Joseph Tuttle TSH Qn 0.770 uIU/mL Normal 0.470-4.680 [facility] Comment on above: Performed By: #### T SH, CMP, T7 #### [facility] [address] [id number] Joseph Tuttle COVID-19on 01-06-2020 SARS-CoV-2, Rapid Not Detected Not Detected [place], [place] Comment on above: Rapid NAAT: The [...] management decisions. Fact sheet for Healthcare Providers: https://www.fda.gov/media/214347/download Fact sheet for Patients: https://www.fda.gov/media/888632/download Methodology: Isothermal Nucleic Acid Amplification Source .NASOPHARYNGEAL SWAB [place], [place] Otheron 01-06-2020 SARS-CoV-2 [place] [id number] 01-06-2020 SARS-CoV-2 [facility] Comment on above: Performed By: #### C OVID #### [facility] [address] [place] [address] Post Form Remover: Wayne [place] MD SARS-CoV-2 [facility] Comment on above: Performed By: #### C OVID #### [facility] [address] [place] [address] Post Form Remover: Wayne [place] MD SARS-CoV-2,Rapid Not Detected [facility] Comment on above: Result Comment: [...] management decisions. Fact sheet for Healthcare Providers: https://www.fda.gov/media/521837/download Fact sheet for Patients: https://www.fda.gov/media/482096/download Methodology: Isothermal Nucleic Acid Amplification Performed By: #### C OVID #### [facility] [address] [place] [address] Post Form Remover: Wayne [place] MD SARS-CoV-2 Source .NASOPHARYNGEAL SWAB Normal [facility] Comment on above: Performed By: #### C OVID #### [facility] [address] [place] [address] Post Form Remover: Wayne [place] MD Vital Signs Date Time Vital Sign Value Performing Clinician Facility 04-19-2022 18:10-0500 Body height 165.1 cm Ellen Jaquez Other [email or web address] Other 04-19-2022 18:10-0500 Body mass index (BMI) [Ratio] 19.97 kg/m2 Ellen Jaquez Other [email or web address] Other 04-19-2022 18:10-0500 Body temperature 97.5 [degF] Ellen Jaquez Other [email or web address] Other 04-19-2022 18:10-0500 Body weight 54.43 kg Ellen Jaquez Other [email or web address] Other 04-19-2022 18:10-0500 Respiratory rate 18 /min Ellen Jaquez Other [email or web address] Other 04-19-2022 18:10-0500 SaO2% (BldA) [Mass fraction] 99 % Ellen Jaquez Other [email or web address] Other 01-06-2020 08:56-0400 BMI (Body Mass Index) 18.56 kg/m2 [facility] [place] 01-06-2020 08:56-0400 Body Temperature 98.01 [degF] Minesh Jonespatrick fsboWOW [facility], [place] 01-06-2020 08:56-0400 Body weight 52.16 kg Minesh JonesIntellicheck Mobilisa [facility] 01-06-2020 08:56-0400 BP Diastolic 77 mm[Hg] Minesh JonesDirect Hit [facility] 01-06-2020 08:56-0400 BP Systolic 137 mm[Hg] Minesh JonesIntellicheck Mobilisa [facility] 01-06-2020 08:56-0400 Height 167.6 cm Minesh JavierDirect Hit [facility] [place] 01-06-2020 08:56-0400 Pulse (Heart Rate) 88 /min Minesh Vogel [facility] [place] [place] 01-06-2020 08:56-0400 Pulse Oximetry 99 % Minesh JonesDirect Hit [facility] [place] 01-06-2020 08:56-0400 Respiratory Rate 12 /min Minesh Vogel [facility], [place] Encounters Encounter Date Encounter Type Care Provider Facility Start: 08-11-2023 ambulatory Kirill Mckeon acility:[facility] Start: 04-19-2022 End: 04-19-2022 ambulatory Ellen Leonid Other [email or web address] Other Start: 04-19-2022 Office outpatient ne w 30 minutes Ellen Jaquez [facility] Start: 04-10-2020 Patient encounter procedure ISABELA NORIEGA Facility:[facility] Start: 04-01-2020 End: 04-02-2020 Patient encounter procedure ISABELA HARI Facility: Start: 01-06-2020 End: 01-06-2020 Emergency department patient visit [facility] Start: 01-06-2020 End: 01-06-2020 Emergency department patient visit [facility] ED Comment on above: Viral infection (Kae kayla Dx) Procedures Date Procedure Procedure Detail Performing Clinician Start: 01-06-2020 COVID-19 MINESH LOYD Start: 01-06-2020 COVID-19 Minesh Ventura Javier Plan of Treatment Date Care Activity Detail Author Start: 11-09-2019 Influenza vaccination Flu vaccine (# 1) [place], [place] Payers Date Payer Category Payer Unknown [id number] 1995 Unknown [id number] 1995 Unknown [id number] [id number] [id number] 1959 Self-pay 1959 Unknown [id number] [id number] Unknown [id number] 2. [id number] Unknown [id number] [id number] Social History Date Type Detail Facility Start: [facility]-06-2020 [facility] [place] History of tobacco use Cigarette Smoker [place], [place] Start: 01-06-2020 Cigarettes smoked current (pack per day) - Reported FLOYD Avelar Start: 01-06-2020 Tobacco use and exposure Never used FLOYD Avelar Start: 01-06-2020 Alcohol intake Ex-drinker (finding) FLOYD Avelar Sex Assigned At Not on file FLOYD Avelar Sex Assigned At Sex Assigned At Bir th [email or web address] Other Evaluation note 04-19-2022 Note Date & [...] understanding and is agreeable to treatment plan [email or web address] Other Discharge Instructions * Attachments The following attachments cannot be sent through Care Everywhere. * Viral Infections (Romanian) documented in this encounter Assessments Diagnosis Viral infection Unspecified viral infection, in conditions classified elsewhere and of unspecified site Summary Purpose Family History No Family History Records FoundNo Family History Records FoundNo Family History Records Found Advance Directives No Advanced Directives Records FoundNo Advanced Directives Records FoundNo Advanced Directives Records Found Additional Source Comments Reason for Visit (unrecogniz ed section and content) Reason Comments Covid Testing Sent home from work. Onset of cough yesterday. (unrecognized sect ion and content) No Status Records FoundNo Status Records FoundNo Status Records Found INFORMATION SOURCE (unrecogn ized section and content) DATE CREATED AUTHOR 01/06/2020 [facility] DATE CREATED AUTHOR AUTHOR'S ORGANIZ ATION 04/16/2020 [facility] DATE CREATED AUTHOR AUTHOR'S DEVON ATION 11/07/2023 [facility] FOR RECORDS PERTAINING TO PATIENTS WHO ARE [...] BE BASED ON THE PRIMARY CLINICAL RECORDS. [email or web address] [facility]. provides no warranty or guarantee of the accuracy or completeness of information in this document.
[2024-04-06 13:26] LABS: Influenza Virus A Antigen Negative; Influenza Virus B Antigen Negative; Internal Control Within Normal Limits; SARS-CoV-2 Ag NEGATIVE (NEGATIVE)
[2024-04-06 13:27] LABS: Internal Control Within Normal Limits
--- NOTE | 2024-04-06 13:41 | ED_ITS ---
HPI - URI/Sore Throat General Chief Complaint: Upper Respiratory Infection Stated Complaint: URTI COMPLAINTS Time Seen by Provider: 04/06/24 12:46 Source: patient Limitations: no limitations History of Present Illness HPI Narrative: 28-year-old male presents to the emergency department for chief complaint of cough. It has been nonproductive and has had it for a week. No known fever or hemoptysis. He had bodyaches and was concerned that he might have COVID. He smokes and sometimes he feels like he cannot get in a deep breath. Related Data Previous Rx's ?Medication ?Instructions ?Recorded albuterol sulfate 90 mcg/actuation 2 inh inhalation Q4H PRN shortness 04/06/24 aerosol inhaler of breath or wheezing #8.5 grams benzonatate 100 mg capsule 100 mg PO TID PRN cough #20 caps 04/06/24 loratadine 5 mg-pseudoephedrine ER 1 tab PO Q12H PRN nasal congestion 04/06/24 120 mg tablet,extended #20 tabs release,12hr (Claritin-D 12 Hour) Allergies Allergy/AdvReac Type Severity Reaction Status Date / Time No Known Drug Allergies Allergy Verified 04/06/24 12:43 Review of Systems ROS Narrative A ten point review of systems is negative except as noted above. PFSH PFSH Social History Smoking status: Never smoker Little interest or pleasure in doing things: not at all Feeling down, depressed, or hopeless: not at all Exam Narrative Exam Narrative: Nurses note and vital signs reviewed and patient is not hypoxic. General: The patient appears well and in no apparent distress. Patient is resting comfortably on cart. Skin: Warm, dry, no pallor noted. There is no rash noted. Head: Normocephalic, atraumatic Eye: Normal conjunctiva, no drainage Ears, Nose, Mouth, and Throat: oral mucosa is moist. Nares patent. Cardiovascular: Regular Rate and Rhythm Respiratory: Patient is in no distress, no accessory muscle use, lungs show a few rhonchi. Good air movement present. Back: non-tender GI: Soft and nontender Musculoskeletal: The patient has no evidence of calf tenderness, no pitting edema, symmetrical pulses noted bilaterally Neurological: A&O, normal speech Psychiatric: Cooperative Constitutional Vital Signs, click to edit/add: Last Vital Signs Temp 98.3 F 04/06/24 12:44 Pulse 99 H 04/06/24 12:44 Resp 20 04/06/24 12:44 BP 121/73 04/06/24 12:44 Pulse Ox 99 04/06/24 12:44 O2 Del Method Room Air 04/06/24 12:44 Course Vital Signs Vital signs: Vital Signs Temperature 98.3 F 04/06/24 12:44 Pulse Rate 99 H 04/06/24 12:44 Respiratory Rate 20 04/06/24 12:44 Blood Pressure 121/73 04/06/24 12:44 Pulse Oximetry 99 04/06/24 12:44 Oxygen Delivery Method Room Air 04/06/24 12:44 Temperature 98.3 F 04/06/24 12:44 Pulse Rate 99 H 04/06/24 12:44 Respiratory Rate 20 04/06/24 12:44 Blood Pressure 121/73 04/06/24 12:44 Pulse Oximetry 99 04/06/24 12:44 Oxygen Delivery Method Room Air 04/06/24 12:44 MDM - URI/Sore Throat MDM Narrative Medical decision making narrative: Chest x-ray, COVID, and influenza are negative. He is prescribed albuterol, Claritin-D, and Tessalon. My clinical impression is that he has a viral illness. Treatment diagnosis and follow-up were discussed with the patient Differential Diagnosis Differential diagnosis: Likely upper respiratory infection, viral infection, influenza and other (COVID, pneumonia) Lab Data Attestation: I reviewed the patient's lab results. Labs: Lab Results 04/06/24 Range/Units 12:53 Influenza Type A Ag Negative Influenza Type B Ag Negative SARS-CoV-2 Ag (CV2AG) Negative (NEGATIVE) Imaging Data Chest x-ray: Radiologist's impression: ITS Impressions Chest X-Ray 04/06/24 12:48 IMPRESSION: No acute cardiopulmonary process Electronically authenticated by: SAIGE MATTHEWS Date: 04/06/2024 13:08 Discharge Plan Discharge Chief Complaint: Upper Respiratory Infection Clinical Impression: Viral URI Patient Disposition: Home, Self-Care Time of Disposition Decision: 13:40 Condition: Good Mode of Transportation: Private Vehicle Prescriptions / Home Meds: New benzonatate 100 mg capsule 100 mg PO TID PRN (Reason: cough) Qty: 20 0RF Claritin-D 12 Hour 5-120 mg tablet extended release 12 hr 1 tab PO Q12H PRN (Reason: nasal congestion) Qty: 20 0RF albuterol sulfate 90 mcg/actuation HFA aerosol inhaler 2 inh inhalation Q4H PRN (Reason: shortness of breath or wheezing) Qty: 8.5 0RF Print Language: Serbian Instructions: Upper Respiratory Infection (ED) Referrals: JAYLA CROOK [Primary Care Provider] - 1 week
== END 2024-04-06 14:00 | disposition home or self-care (01) ==
PROVIDERS: Emergency Provider Emergency Medicine; PCP Family Medicine
DX: J06.9 Acute upper respiratory infection, unspecified (principal); F17.200 Nicotine dependence, unspecified, uncomplicated
CPT/HCPCS: 71045; 87804; 87811; 99284